=== PATIENT | male | born 1965 | race Caucasian/White ===

== ENCOUNTER 2017-08-12 03:25 | Observation (INO) ==
[2017-08-12] MEDS ORDERED: DiltiaZEM 25 MG/5 ML INJECTION IVP ONE (03:37)
[2017-08-12] MEDS ORDERED: SALINE FLUSH 10ml SYRINGE IVF PRN (03:37)
[2017-08-12] MEDS ORDERED: NS 1,000 ML IV ONE (03:37)
--- OUTSIDE RECORDS SUMMARY | 2017-08-12 03:47 | External Medical Summary | Summary of Care ---
:1965 Author Name Wesley Boo M.D. Address [address] [place] [address] Care Team Providers Name Role Phone LeannXu ayoub Unavailable Unavailable Unavailable Unavailable Unavailable Functional Status Functional Status Health Issues Name Dates Details Functional status health issues are not documented Status: Cognitive Status Health Issues Name Dates Details Cognitive status health issues are not documented Status: Problems Name Dates Details Elevated PSA (790.93, R97.20) Status: Active Benign prostatic hypertrophy with lower urinary tract symptoms (LUTS) (600.01, N40.1) Status: Active Medications Name Dates Details Zyrtec 10 MG TABS Refills: 0 Active Sotalol HCl - 80 MG Oral Tablet Refills: 0 Active Lisinopril 5 MG Oral Tablet Refills: 0 Active Vitamin C 500 MG Oral Tablet Refills: 0 Active HydroCHLOROthiazide 25 MG Oral Tablet Refills: 0 Active Aspirin EC 325 MG Oral Tablet Delayed Release Refills: 0 Active Allergies and Adverse Reactions Name Dates Details No Known Allergies (Allergy) Status: Active Past Medical History Name Dates Details History of atrial fibrillation (V12.59, Z86.79) Status: Resolved History of Calcium kidney stone (592.0, N20.0) Status: Resolved History of hypertension (V12.59, Z86.79) Status: Resolved History of Irregular heart beat (427.9, I49.9) Status: Resolved Procedures Procedure Dates Details History of Appendectomy History of Inguinal Hernia Repair History of Tonsillectomy With Adenoidectomy History of Biopsy Of The Prostate Needle Procedures not documented Immunization Name Dates Details Immunizations not documented Family History Unknown Family Member Name Dates Details Family history of Calcium kidney stones (592.0, N20.0) Comments: Family History Status: Active Family history of lymphoma (V16.7, Z80.2) Comments: Family History Status: Active Father Name Dates Details Family history of cerebrovascular accident (CVA) (V17.1, Z82.3) Status: Active Social History Name Dates Details - Status: Smoking Status Name Dates Details Never smoker Vital Signs Date Test Result Details No Known Vitals to report Results Date Description Value Details 08-Nov-2016 11:53 PSA ( PROSTATE SPECIFIC ANTIGEN) 3100 PROSTATE SPECIFIC ANTIGEN 2.960 ng/mL Range: 0.000-4.000 Plan of Care Name Dates Details Planned Observations Planned Goals not documented Planned Encounters Appointment; Provider: Wesley Boo M.D. On 06-Nov-2017 16:00 Appointment; Provider: Wesley Boo M.D. On 11:00 Instructions Name Dates Details Instructions not documented Encounters Appointment; Wesley Boo M.D. On 07-Nov-2016 Encounter Diagnosis: Problem not documented 15:45 Appointment; Wesley Boo M.D. On Encounter Diagnosis: Problem not documented 10:45 Appointment; Wesley Boo M.D. On 02-Nov-2015 Encounter Diagnosis: Problem not documented 15:45
--- OUTSIDE RECORDS SUMMARY | 2017-08-12 03:48 | External Medical Summary | Summary of Care ---
:1965 Author Name Wesley Boo M.D. Address [address] [place] [address] Care Team Providers Name Role Phone Xu Russ Primary Care Provider Unavailable Functional Status Functional Status Health Issues Name Dates Details Functional status health issues are not documented Status: Cognitive Status Health Issues Name Dates Details Cognitive status health issues are not documented Status: Problems Name Dates Details Elevated PSA (790.93, R97.2) Status: Active BPH (benign prostatic hypertrophy) (600.00, N40.0) Status: Active Medications Name Dates Details Zyrtec 10 MG TABS Refills: 0 ActiveSotalol HCl - 80 MG Oral Tablet Refills: 0 ActiveLisinopril 5 MG Oral Tablet Refills: 0 ActiveVitamin C 500 MG Oral Tablet Refills: 0 ActiveHydrochlorothiazide 25 MG Oral Tablet Refills: 0 ActiveAspirin EC 325 MG Oral Tablet Delayed Release Refills: 0 Active Allergies and Adverse Reactions Name Dates Details No Known Allergies Status: Active Past Medical History Name Dates [...] History of Biopsy Of The Prostate Needle PSA ( PROSTATE SPECIFIC ANTIGEN) 3100 Ordered:02-Nov-2015 Immunization Name Dates Details Immunizations not documented Family History Unknown Family Member Name Dates Details Family history of Calcium kidney stones (592.0, N20.0) Comments: Family History Status: Active Family history of lymphoma (V16.7, Z80.2) Comments: Family History Status: Active Father Name Dates Details Family history of cerebrovascular accident (CVA) (V17.1, Z82.3) Status: Active Social History Name Dates Details Smoking StatusNever smoker Vital Signs Date Test Result Details 02-Nov-2015 16:22 BP Systolic 132 mm[Hg] Status: BP Diastolic 90 mm[Hg] Status: Heart Rate 79 /min Status: Height 70 in Status: Weight 205 lb Status: Body Mass Index Calculated 29.41 kg/m2 Status: Body Surface Area Calculated 2.11 m2 Status: Results Date Description Value Details Results not documented Plan of Care Planned Observations Name Dates Details Planned Goals not documented Goal Planned Encounters Appointment; Provider: Wesley Boo On 07-Nov-2016 15:45 Instructions Instructions not documented Encounters Appointment; Wesley Boo On 02-Nov-2015 Encounter Diagnosis: Problem not documented 15:45
--- OUTSIDE RECORDS SUMMARY | 2017-08-12 03:48 | External Medical Summary | Summary of Care ---
:1965 Author Name Wesley Boo M.D. Address [address] [place] [address] [place] [address] Care Team Providers Name Role Phone Wesley Boo M.D. Unavailable Unavailable Xu Russ Unavailable Unavailable Unavailable Unavailable Unavailable Functional Status [...] to report Results Date Description Value Details Results not documented Plan of Care Name Dates Details Planned Observations Planned Goals not documented Planned Encounters Appointment; Provider: Wesley Boo M.D. On 06-Nov-2017 16:00 Appointment; Provider: Wesley Boo M.D. On 11:00 Instructions Name Dates Details Instructions not documented Encounters Appointment; Wesley Boo M.D. On Encounter Diagnosis: Problem not documented 10:45 Appointment; Wesley Boo M.D. On 02-Nov-2015 Encounter Diagnosis: Problem not documented 15:45
--- OUTSIDE RECORDS SUMMARY | 2017-08-12 03:48 | External Medical Summary | Summary of Care ---
:1965 Author Name Wesley Boo M.D. Address [address] [place] [address] Care Team Providers Name Role Phone Xu [...] m2 Status: Results Date Description Value Details 03-Nov-2015 10:47 PSA ( PROSTATE SPECIFIC ANTIGEN) 3100 PROSTATE SPECIFIC ANTIGEN 2.790 ng/mL (Better) Range: 0.000-4.000 Plan of Care Planned Observations Name Dates Details Planned Goals not documented Goal Planned Encounters Appointment; Provider: Wesley Boo On 07-Nov-2016 15:45 Instructions Instructions not documented Encounters Appointment; Wesley Boo On 02-Nov-2015 Encounter Diagnosis: Problem not documented 15:45
--- OUTSIDE RECORDS SUMMARY | 2017-08-12 03:48 | External Medical Summary | Summary of Care ---
:1965 Author Name Wesley Boo M.D. Address Unavailable Unavailable , Care Team Providers Name Role Phone Xu Russ Primary Care Provider Unavailable Unavailable Unavailable Unavailable Functional Status Functional Status Health Issues Name Dates Details Functional status health issues are not documented Status: Cognitive Status Health Issues Name Dates Details Cognitive status health issues are not documented Status: Problems Name Dates Details Benign prostatic hypertrophy with lower urinary tract symptoms (LUTS) (600.01, N40.1) Status: Active Elevated PSA (790.93, R97.2) Status: Active Medications Name Dates Details Zyrtec [...] Needle PSA ( PROSTATE SPECIFIC ANTIGEN) 3100 Ordered: Immunization Name Dates Details Immunizations not documented [...] Planned Encounters Appointment; Provider: Wesley Boo On 11:00 Appointment; Provider: Wesley Boo On 07-Nov-2016 15:45 Instructions Instructions not documented Encounters Appointment; Wesley Boo On Encounter Diagnosis: Problem not documented 10:45 Appointment; Wesley Boo On 02-Nov-2015 Encounter Diagnosis: Problem not documented 15:45
--- OUTSIDE RECORDS SUMMARY | 2017-08-12 03:48 | External Medical Summary | Summary of Care ---
:1965 Author Name Wesley Boo M.D. Address [address] [place] [address] Care Team Providers Name Role Phone Wesley Boo M.D. Unavailable Unavailable Xu Russ Unavailable Unavailable Unavailable Unavailable Unavailable Functional Status Functional Status Health Issues Name Dates Details Functional status health issues are not documented Status: Cognitive Status Health Issues Name Dates Details Cognitive status health issues are not documented Status: Problems Name Dates Details Benign prostatic hyperplasia with incomplete bladder emptying (600.01, N40.1) Status: Active Rising PSA level (790.93, R97.20) Status: Active Medications Name Dates Details Zyrtec 10 MG TABS Refills: 0 Active Sotalol HCl - 80 MG Oral Tablet Refills: 0 Active Lisinopril 5 MG Oral Tablet Refills: 0 Active Vitamin C 500 MG Oral Tablet Refills: 0 Active HydroCHLOROthiazide 25 MG Oral Tablet Refills: 0 Active Aspirin EC 325 MG Oral Tablet Delayed Release Refills: 0 Active Levothyroxine Sodium 25 MCG Oral Tablet TAKE 1 TABLET DAILY. Refills: 0 Start Active Tamsulosin HCl - 0.4 MG Oral Capsule TAKE ONE CAPSULE BY MOUTH EVERY NIGHT AT BEDTIME Quantity: 30 Refills: 3 Rajeev Carney, Wesley Start Active Allergies and Adverse Reactions Name Dates Details No Known Allergies (Allergy) Status: Active Past Medical History Name Dates Details History of atrial fibrillation (V12.59, Z86.79) Status: Resolved History of Calcium kidney stone (592.0, N20.0) Status: Resolved History of elevated prostate specific antigen (PSA) (V13.89, Z87.898) Status : Resolved History of hypertension (V12.59, Z86.79) Status: Resolved History of Irregular heart beat (427.9, I49.9) Status: Resolved Procedures Procedure Dates Details History of Appendectomy History of Inguinal Hernia Repair History of Tonsillectomy With Adenoidectomy History of Needle Biopsy Of Prostate PSA ( PROSTATE SPECIFIC ANTIGEN) 3100 Ordered: [...] smoker Vital Signs Date Test Result Details 11:04 BP Systolic 117 mm[Hg] Status: Comments: Location: ; Position: BP Diastolic 84 mm[Hg] Status: Comments: Location: ; Position: Heart Rate 82 /min Status: Comments: Location: ; Physical Findings 18 Status: Comments: Respiration Results Date Description Value Details Results not documented Plan of Care Name Dates Details Planned Observations Planned Goals not documented Planned Encounters Appointment; Provider: Wesley Boo M.D. On 11:00 Appointment; Provider: Wesley Boo M.D. On 06-Nov-2017 16:00 Interventions Provided Medication ChangesTamsulosin HCl - 0.4 MG Oral Capsule - StartLabs/Procedures/ ImagingPSA ( PROSTATE SPECIFIC ANTIGEN) 3100; To be Done: 01 May 2017 Instructions Name Dates Details Instructions not documented Encounters Appointment; Wesley Boo M.D. On 07-Nov-2016 Encounter Diagnosis: Problem not documented 15:45 Appointment; Wesley Boo M.D. On Encounter Diagnosis: Problem not documented 10:45 Appointment; Wesley Boo M.D. On 02-Nov-2015 Encounter Diagnosis: Problem not documented 15:45
--- OUTSIDE RECORDS SUMMARY | 2017-08-12 03:48 | External Medical Summary | Summary of Care ---
[...] to report Results Date Description Value Details 13:33 PSA ( PROSTATE SPECIFIC ANTIGEN) 3100 PROSTATE SPECIFIC ANTIGEN 3.490 ng/mL Range: 0.000-4.000 (Better) Comments: Variance from previous testing noted.----- Plan of Care Planned Observations Name Dates Details Planned Goals not documented Goal Planned Encounters Appointment; Provider: Wesley Boo On 11:00 Appointment; Provider: Wesley Boo On 07-Nov-2016 15:45 Instructions Instructions not documented Encounters Appointment; Wesley Boo On Encounter Diagnosis: Problem not documented 10:45 Appointment; Wesley Boo On 02-Nov-2015 Encounter Diagnosis: Problem not documented 15:45
--- OUTSIDE RECORDS SUMMARY | 2017-08-12 03:48 | External Medical Summary | Summary of Care ---
:1965 Author Name Wesley Boo M.D. Address [address] [place] [address] [place] [address] Care Team Providers Name Role Phone Wesley [...] PSA ( PROSTATE SPECIFIC ANTIGEN) 3100 Ordered: 07-Nov-2016 Immunization Name Dates Details Immunizations not documented [...] Appointment; Provider: Wesley Boo M.D. On 11:00 Interventions Provided Labs/Procedures/ImagingPSA ( PROSTATE SPECIFIC ANTIGEN) 3100; To be Done: 07 Nov 2016 Instructions Name Dates Details Instructions not documented Encounters Appointment; Wesley Boo M.D. On Encounter Diagnosis: Problem not documented 10:45 Appointment; Wesley oBo M.D. On 02-Nov-2015 Encounter Diagnosis: Problem not documented 15:45
--- OUTSIDE RECORDS SUMMARY | 2017-08-12 03:48 | External Medical Summary | Summary of Care ---
:1965 Author Name Wesley Boo M.D. Address [address] [place] [address] Care Team Providers Name Role Phone Xu [...] Hernia Repair History of Tonsillectomy With Adenoidectomy Procedures not documented Immunization Name Dates Details [...]
--- OUTSIDE RECORDS SUMMARY | 2017-08-12 03:48 | External Medical Summary | Summary of Care ---
:1965 Author Name Wesley Boo M.D. Address [address] [place] [address] [place] [address] Care Team Providers Name Role Phone Wesley [...] NIGHT AT BEDTIME Quantity: 30 Refills: 3 Wesley Boo M.D. Start Active Allergies and Adverse Reactions Name [...] Adenoidectomy History of Needle Biopsy Of Prostate Procedures not documented Immunization Name Dates Details [...] HCl - 0.4 MG Oral Capsule - Start Instructions Name Dates Details Instructions not documented Encounters Appointment; Wesley Boo M.D. On 07-Nov-2016 Encounter Diagnosis: Problem not documented 15:45 Appointment; Wesley Boo M.D. On Encounter Diagnosis: Problem not documented 10:45 Appointment; Wesley Boo M.D. On 02-Nov-2015 Encounter Diagnosis: Problem not documented 15:45
--- NOTE | 2017-08-12 04:11 | Emergency Department Report ---
Cardiac General HPI - General Chief Complaint: Arrhythmia/Palpitations Stated Complaint: afib Time Seen by Provider: 08/12/17 03:33 Source: patient Mode of arrival: ambulatory Limitations: no limitations - History of Present Illness HPI narrative: 51yo man presents to the ER for evaluation of a fast heart rate. Pt has a h/o A- fib; has had A-fib with RVR twice in the last 5 years. Both times, he was cardioverted (once with diltiazem, once electrically). He denies anything out of the ordinary tonight; no EtOH or drug ingestion. Certified [employer]der is Dr. Eaton. Occurred At: home Onset (ago): minute(s) Duration: constant Severity: moderate Context: occurred during rest Activites at Onset: sleep Prior Chest Pain/Cardiac Workup: echocardiography Nitro Today: no nitro taken today Associated Symtoms: denies other symptoms History of Similar Symptoms: Yes - Related Data Home Medications Medication Instructions Recorded Confirmed Ascorbic Acid (Vitamin C) 1,000 mg PO DAILY #0 04/02/13 08/12/17 Aspirin 325 mg PO DAILY #0 04/02/13 08/12/17 Cetirizine HCl [Zyrtec] 10 mg PO DAILY #0 04/02/13 08/12/17 Sotalol HCl [Sotalol] 120 mg PO BID #0 04/02/13 08/12/17 Lisinopril 5 mg PO HS #0 tab 05/06/15 08/12/17 hydroCHLOROthiazide 25 mg PO DAILY #0 05/06/15 08/12/17 [Hydrochlorothiazide] Previous Rx's Medication Instructions Recorded levothyroxine 25 mcg tablet 25 mcg PO DAILY #30 tab 07/17/17 Allergies Allergy/AdvReac Type Severity Reaction Status Date / Time No Known Allergies Allergy Verified 08/12/17 04:06 Review of Systems All systems: reviewed and negative except as stated Cardiovascular: Reports: as per HPI, palpitations PFSH Patient Stated Medical History Cardiac Arrhythmia Yes: A-Fib with RVR Medical History Updates: A-fib with RVR. HTN. Hypothyroid. Allergic rhinitis - Social History Smoking status: Never smoker Physical Exam - Limitations Limitations: no limitations - General General appearance: alert, in no apparent distress, obese - Normal Exams: Head:: Normocephalic without trauma Eyes:: Pupils are PERRLA w/ EOMI, No scleral icterus, irritation, or foreign bodies noted ENMT:: No facial trauma, nasal exudates, pharyngeal erythema, or exudates are noted Neck:: Full range of motion, without adenopathy Lymphatic:: No lymphadenopathy Musculoskeletal:: No tenderness, or deformity noted Integumentary:: No rashes, hives, or bruising noted Neurological:: Patient is alert, and oriented Psychiatric:: Patient exhibits, appropriate attention - Chest Chest inspection: Present: normal inspection, symmetric chest wall rise. Absent : tenderness, rash - Respiratory Respiratory exam: Present: normal lung sounds bilaterally. Absent: respiratory distress, wheezes, prolonged expiratory phase - Cardiovascular Cardiovascular exam: Present: tachycardia, irregular rhythm, normal heart sounds , +S1, +S2. Absent: regular rate, normal rhythm, systolic murmur, diastolic murmur, +S3, +S4 - Abdominal Exam Abdominal exam: Present: soft, normal bowel sounds. Absent: distention, tenderness, guarding, rebound, rigidity, psoas sign, obturator sign, heel tap sign, Sy's sign, Rovsing's sign, tenderness at McBurney's Point, hernia Course - Consultations Consultation #1: Dr. Eaton: Will place pt in CCU. Ensure pt is anticoagulated and place on dilt drip to control rate. Time: 04:43 Vital Signs Temperature 98.1 F 08/12/17 03:27 Pulse Rate 130 H 08/12/17 03:27 Respiratory Rate 16 08/12/17 03:27 Blood Pressure 123/89 08/12/17 03:27 Pulse Oximetry 98 08/12/17 03:27 Temperature 98.1 F 08/12/17 03:27 Pulse Rate 68 08/12/17 04:30 Respiratory Rate 24 08/12/17 04:30 Blood Pressure 112/74 08/12/17 04:30 Pulse Oximetry 94 08/12/17 04:30 Cardiac General - Differential Diagnosis Differential diagnosis: Likely: palpitations, anxiety, artial fibrillation, artial flutter, supraventricular tachycardia - Medical Records Attestation: I reviewed the patient's medical records. - Lab Data Attestation: I reviewed the patient's lab results. Result diagrams: 08/12/17 03:56 08/12/17 03:56 Lab Results 08/12/17 08/12/17 Range/Units 03:56 03:56 WBC 8.2 (4.5-11.0) T/MM3 RBC 4.84 (4.50-5.90) M/MM3 Hgb 13.6 (13.5-17.5) GM/DL Hct 40.2 L (41-53) % MCV 83.1 (80-100) UM3 MCH 28.1 (26-34) UUG MCHC 33.8 (31-37) GM/DL RDW Std Deviation 40.4 (36.9-50.2) FL Plt Count 289 (130-400) T/MM3 MPV 9.9 (9.4-12.4) UM3 Immature Gran % (Auto) 0.6 H (0.0-0.5) % Neut % (Auto) 55.9 (33-66) % Lymph % (Auto) 29.4 (23-45) % [place] % (Auto) 11.4 H (0-9.0) % Eos % (Auto) 2.1 (0-4) % Baso % (Auto) 0.6 (0-2) % Neut # (Auto) 4.6 (1.8-7.7) T/MM3 Lymph # (Auto) 2.4 (1-4.8) T/MM3 [place] # (Auto) 0.9 H (0-0.8) T/MM3 Eos # (Auto) 0.2 (0-0.5) T/MM3 Baso # (Auto) 0.1 (0-0.2) T/MM3 Abs Immat Gran (auto) 0.05 H (0.00-0.03) T/MM3 Turbidity < 20 (0-20) Sodium 143 (134-144) MEQ/L Potassium 3.4 L (3.6-5) MEQ/L Chloride 106 (98-107) MEQ/L Carbon Dioxide 27 (22-30) MEQ/L Anion Gap 10 (5-15) MEQ/L BUN 13.0 (9-20) MG/DL Creatinine 0.8 (0.8-1.5) MG/DL GFR Calculation 102 BUN/Creatinine Ratio 16 (6-26) RATIO Glucose 110 (75-110) MG/DL Calculated Osmolality 276 (261-280) MOSM/KG Calcium 9.2 (8.4-10.2) MG/DL Icterus Index < 2 (0-7) Specimen Hemolysis < 15 (0-25) - Radiology Data Attestation: I reviewed the patient's radiology results. - EKG Data EKG #1 EKG attestation: Yes: I reviewed and interpreted this EKG. EKG shows normal: axis, intervals, QRS complexes Rhythm: A.Fib Interpretation: nonspecific ST-T wave changes Disposition Clinical Impression: Atrial fibrillation with RVR Disposition: 02 To [facility] Print Language: Egyptian Condition: Improved Prescriptions: No Action Sotalol HCl [Sotalol] 120 mg PO BID #0 Aspirin 325 mg PO DAILY #0 Ascorbic Acid (Vitamin C) 1,000 mg PO DAILY #0 Cetirizine HCl [Zyrtec] 10 mg PO DAILY #0 hydroCHLOROthiazide [Hydrochlorothiazide] 25 mg PO DAILY #0 Lisinopril 5 mg PO HS #0 tab levothyroxine 25 mcg tablet 25 mcg PO DAILY #30 tab Referrals: Xu Russ MD [Family Provider] - Time of Disposition: 04:49 - Seen By: physician
[2017-08-12] MEDS ORDERED: ENOXAPARIN 100 MG/ML INJECTION SQ ONE (04:48)
[2017-08-12] MEDS ORDERED: DiltiaZEM Drip 125 MG in NS 100 ML IV SCH (05:00)
[2017-08-12 05:35] VITALS: BMI 32.4
[2017-08-12] MEDS ORDERED: INFLUENZA VAC QIV 2017-18 (Fluarix*)(>=3yo) 0.5ml IM ONE (05:39)
--- NOTE | 2017-08-12 07:08 | XRay Report ---
EXAM: XR chest 1V LOCATION OF DICTATION: [facility] HISTORY: A-fib with RVR COMPARISON: May 21, 2014. FINDINGS: The heart is upper limits normal size. There is mild prominence the central bronchovascular structures. Mild hazy interstitial opacities demonstrated bilaterally. There are no visible pleural effusions. There is no pneumothorax. The osseous structures are within normal limits for the patient's age. IMPRESSION: Upper limits normal sized heart with suggestion of mild pulmonary vascular congestion and interstitial edema. .
[2017-08-12] MEDS ORDERED: LEVOTHYROXINE 25 MCG TABLET PO SCH (09:00)
[2017-08-12] MEDS ORDERED: CETIRIZINE 10 MG TABLET PO SCH (09:00)
[2017-08-12] MEDS ORDERED: ENOXAPARIN 100 MG/ML INJECTION SQ SCH (09:00)
[2017-08-12] MEDS ORDERED: ASPIRIN 325 MG TABLET PO SCH (09:00)
[2017-08-12] MEDS ORDERED: ASCORBIC ACID 500 MG TABLET PO SCH (09:00)
--- NOTE | 2017-08-12 10:16 | Cardiology History & Physical ---
History of Present Illness Chief complaint: arrhythmia HPI: Lincoln is a 51 year old man who is known to Dr. Eaton who has a history of PAF, HTN and BROOK who presented to the ER for evaluation of a fast heart rate. He was found to be in AFib and given IV Cardizem in the ED without conversion but slowed rate to low 100s. He denies anything out of the ordinary tonight; no EtOH or drug ingestion. He was admitted to CCU for Cardizem drip and DCCV if not converted. He has been on Sotalol 120mg BID and Aspirin 325mg. Before being seen this morning Lincoln can converted back to SR. Discussed current Sotalol dose and patient agrees to continue same dose Sotalol. He denies chest pain or pressure, dyspnea or dizziness. Review of Systems - Constitutional Constitutional: Absent: chills, fatigue, fever(s), weakness - EENMT Eyes: Absent: change in vision Balance: Absent: vertigo Mouth/Throat: Absent: sore throat - Cardiovascular Cardiovascular: Present: palpitations. Absent: chest pain, syncope, dyspnea on exertion, orthopnea Rhythm: Present: abnormal rhythm Vascular: Absent: pedal edema - Respiratory Respiratory: Absent: cough, dyspnea - Gastrointestinal Gastrointestinal: Absent: abdominal pain, constipation, diarrhea, nausea, vomiting - Genitourinary Genitourinary: Absent: dysuria - Integumentary/Breasts Integumentary: Absent: rash - Neurological Neurological: Absent: dizziness - Endocrine Endocrine: Present: palpitations PFSH Patient Stated Medical History Cardiac Arrhythmia Yes: A-Fib with RVR Hypertension Yes Sleep Apnea Yes Medical History Updates: A-fib with RVR. HTN. Hypothyroid. Allergic rhinitis Surgical History: Tonsillectomy. Appendectomy. Hernia repair Family History: Father- Bone marrow cancer Maternal grandfather- CVA Maternal grandmother- Sudden - Social History Smoking status: Never smoker Substance use type: does not use Alcohol intake frequency: holidays/special occasions only Household members: none Current occupational status: employed Current residence: Apartment/Private Home Medications Home Medications Medication Instructions Recorded Confirmed Type Ascorbic Acid (Vitamin C) 1,000 mg PO DAILY #0 04/02/13 08/12/17 History Aspirin 325 mg PO DAILY #0 04/02/13 08/12/17 History Cetirizine HCl [Zyrtec] 10 mg PO DAILY #0 04/02/13 08/12/17 History Sotalol HCl [Sotalol] 120 mg PO BID #0 04/02/13 08/12/17 History Lisinopril 5 mg PO HS #0 tab 05/06/15 08/12/17 History hydroCHLOROthiazide 25 mg PO DAILY #0 05/06/15 08/12/17 History [Hydrochlorothiazide] Allergies Allergy/AdvReac Type Severity Reaction Status Date / Time No Known Allergies Allergy Verified 08/12/17 04:06 Exam Vital signs: Temperature 97.9 F 08/12/17 08:15 Pulse Rate 57 L 08/12/17 08:32 Respiratory Rate 19 08/12/17 08:15 Blood Pressure 116/80 08/12/17 08:15 Pulse Oximetry 96 08/12/17 08:15 - Constitutional no acute distress, well nourished, cooperative - Routine HEENT Exam Head: Present: normocephalic ENT: Present: mucous membranes moist - Routine Neck Exam Absent: JVD, carotid bruit - Routine Chest/Breast/Axilla Exam Chest wall: Absent: tenderness - Routine Respiratory Exam Present: CTA bilaterally. Absent: rales, wheezes - Routine Cardiovascular Exam Present: RRR. Absent: no murmur, JVD - Routine Abdominal Exam Present: soft, normoactive bowel sounds - Routine Extremities Exam Present: no edema - Routine Skin Exam Present: intact, dry, warm - Routine Neurological Exam Present: alert, oriented X3 - Routine Psychiatric Exam Present: normal affect, normal thought process - Additional findings Additional findings: Abnormal Lab Results 08/12/17 08/12/17 08/12/17 03:56 03:56 03:56 WBC 8.2 RBC 4.84 Hgb 13.6 Hct 40.2 L MCV 83.1 MCH 28.1 MCHC 33.8 RDW Std Deviation 40.4 Plt Count 289 MPV 9.9 Immature Gran % (Auto) 0.6 H Neut % (Auto) 55.9 Lymph % (Auto) 29.4 [place] % (Auto) 11.4 H Eos % (Auto) 2.1 Baso % (Auto) 0.6 Neut # (Auto) 4.6 Lymph # (Auto) 2.4 Gordon # (Auto) 0.9 H Eos # (Auto) 0.2 Baso # (Auto) 0.1 Abs Immat Gran (auto) 0.05 H Turbidity < 20 Sodium 143 Potassium 3.4 L Chloride 106 Carbon Dioxide 27 Anion Gap 10 BUN 13.0 Creatinine 0.8 GFR Calculation 102 BUN/Creatinine Ratio 16 Glucose 110 Calculated Osmolality 276 Calcium 9.2 Magnesium 1.7 Icterus Index < 2 TSH 5.15 H Specimen Hemolysis < 15 Ascorbic Acid (Vitamin C) 1,000 mg PO DAILY [facility] Last Admin: 08/12/17 11:14 Dose: 1,000 mg Aspirin (Asa) 325 mg PO DAILY [facility] Last Admin: 08/12/17 11:18 Dose: 325 mg Cetirizine HCl (Zyrtec) 10 mg PO ACB [facility] Last Admin: 08/12/17 11:14 Dose: 10 mg Hydrochlorothiazide (Hydrodiuril) 25 mg PO WB [facility] Levothyroxine Sodium (Synthroid) 25 mcg PO ACB [facility] Last Admin: 08/12/17 11:15 Dose: 25 mcg Lisinopril (Prinivil) 5 mg PO HS [facility] Sodium Chloride (Iv Flush) 10 - 80 ml IVF PRN PRN PRN Reason: Flushing Last Admin: 08/12/17 04:18 Dose: 10 ml Sotalol HCl (Betapace) 120 mg PO BID/E [facility] Last Admin: 08/12/17 11:23 Dose: 120 mg Results 08/12/17 03:56 08/12/17 03:56 Intake and Output 08/11/17 08/12/17 08/12/17 22:59 06:59 14:59 Intake Total 1003.834 / 1003.834 Output Total 250 / 250 Balance 1003.834 / 1003.834 -250 / -250 Intake: IV 1003.834 / 1003.834 DiltiaZEM Drip 125 mg In 3.834 / 3.834 Ns 100 ml @ 0 mls/hr IV PRN [facility] Rx#:[id number] Ns 1,000 ml @ 1000 mls/hr 1000 / 1000 IV .Q1H ONE Rx#: [id number] Output: Urine 250 / 250 Other: Urine Appearance Clear Urine Color Pale Yellow Weight 213 lb 2.992 oz - Imaging and Cardiology EKG results: image reviewed Imaging & Cardiology Narrative: Date of Exam: 08/12/17 Ordering Provider: May, Daniel M DO Type of Exam(s): XR chest 1V Reason for Exam(s): A-fib with RVR EXAM: XR chest 1V LOCATION OF DICTATION: [place] HISTORY: A-fib with RVR COMPARISON: May 21, 2014. FINDINGS: The heart is upper limits normal size. There is mild prominence the central bronchovascular structures. Mild hazy interstitial opacities demonstrated bilaterally. There are no visible pleural effusions. There is no pneumothorax. The osseous structures are within normal limits for the patient's age. IMPRESSION: Upper limits normal sized heart with suggestion of mild pulmonary vascular congestion and interstitial edema. 08/12/17 14:05 EKG interpretations - EKG EKG results cardiology: sinus rhythm - Blocks, axis, hypertrophy, ST abn Repolarization changes or abnormalities: nonspecific abnormality, ST segment, and/or T wave Hospital Course This is a general summary of the patient's hospital course. For more details refer to the complete medical record. Assessment and Plan - Assessment and Plan (1) Atrial fibrillation with RVR Current visit: Yes Status: Acute History of PAF, last episode in December. - Started on Cardizem in the ED, transferred to CCU, drip started - Converted before planned DCCV - Will continue home Sotalol and discharge later today (2) Essential (primary) hypertension Current visit: Yes Status: Acute BP elevated. Instructed patient to take and record and bring to follow up for adjustment of HTN medications. (3) BROOK (obstructive sleep apnea) Current visit: Yes Status: Acute
[2017-08-12] MEDS ORDERED: SOTALOL 120 MG TABLET PO SCH (11:30)
[2017-08-12 12:21] VITALS: BP 126/88; RESP 24; TEMP 97.6; O2SAT 98
[2017-08-12 12:30] VITALS: PULSE 65
--- NOTE | 2017-08-12 15:09 | Discharge Summary ---
<Serenity Aleman - Last Filed: 08/12/17 15:06> Discharge Information Date of admission: 08/12/17 05:15 Anticipated date of discharge: 08/12/17 Attending Physician: Jairo Eaton MD Primary care physician: Xu Russ MD - Discharge Diagnosis (1) Atrial fibrillation with RVR Status: Acute (2) Essential (primary) hypertension Status: Acute (3) BROOK (obstructive sleep apnea) Status: Acute - Procedures Procedures: none, converted before planned DCCV - Laboratory Labs: Laboratory Tests 08/12/17 08/12/17 08/12/17 03:56 03:56 03:56 WBC 8.2 RBC 4.84 Hgb 13.6 Hct 40.2 L MCV 83.1 MCH 28.1 MCHC 33.8 RDW Std Deviation 40.4 Plt Count 289 MPV 9.9 Immature Gran % (Auto) 0.6 H Neut % (Auto) 55.9 Lymph % (Auto) 29.4 [place] % (Auto) 11.4 H Eos % (Auto) 2.1 Baso % (Auto) 0.6 Neut # (Auto) 4.6 Lymph # (Auto) 2.4 [place] # (Auto) 0.9 H Eos # (Auto) 0.2 Baso # (Auto) 0.1 Abs Immat Gran (auto) 0.05 H Turbidity < 20 Sodium 143 Potassium 3.4 L Chloride 106 Carbon Dioxide 27 Anion Gap 10 BUN 13.0 Creatinine 0.8 GFR Calculation 102 BUN/Creatinine Ratio 16 Glucose 110 Calculated Osmolality 276 Calcium 9.2 Magnesium 1.7 Icterus Index < 2 TSH 5.15 H Specimen Hemolysis < 15 Ascorbic Acid (Vitamin C) 1,000 mg PO DAILY [facility] Last Admin: 08/12/17 11:14 Dose: 1,000 mg Aspirin (Asa) 325 mg PO DAILY [facility] Last Admin: 08/12/17 11:18 Dose: 325 mg Cetirizine HCl (Zyrtec) 10 mg PO ACB [facility] Last Admin: 08/12/17 11:14 Dose: 10 mg Hydrochlorothiazide (Hydrodiuril) 25 mg PO WB [facility] Levothyroxine Sodium (Synthroid) 25 mcg PO ACB [facility] Last Admin: 08/12/17 11:15 Dose: 25 mcg Lisinopril (Prinivil) 5 mg PO HS [facility] Sodium Chloride (Iv Flush) 10 - 80 ml IVF PRN PRN PRN Reason: Flushing Last Admin: 08/12/17 04:18 Dose: 10 ml Sotalol HCl (Betapace) 120 mg PO BID/E [facility] Last Admin: 08/12/17 11:23 Dose: 120 mg - Radiology Radiology: Date of Exam: 08/12/17 Ordering Provider: Daniel Tena DO Type of Exam(s): XR chest 1V Reason for Exam(s): A-fib with RVR EXAM: XR chest 1V LOCATION OF DICTATION: [place] HISTORY: A-fib with RVR COMPARISON: May 21, 2014. FINDINGS: The heart is upper limits normal size. There is mild prominence the central bronchovascular structures. Mild hazy interstitial opacities demonstrated bilaterally. There are no visible pleural effusions. There is no pneumothorax. The osseous structures are within normal limits for the patient's age. IMPRESSION: Upper limits normal sized heart with suggestion of mild pulmonary vascular congestion and interstitial edema. History of Present Illness HPI: Lincoln is a 51 year old man who is known to Dr. Eaton who has a history of PAF, HTN and BROOK who presented to the ER for evaluation of a fast heart rate. He was found to be in AFib and given IV Cardizem in the ED without conversion but slowed rate to low 100s. He denies anything out of the ordinary tonight; no EtOH or drug ingestion. He was admitted to CCU for Cardizem drip and DCCV if not converted. He has been on Sotalol 120mg BID and Aspirin 325mg. Before being seen this morning Lincoln can converted back to SR. Discussed current Sotalol dose and patient agrees to continue same dose Sotalol. He denies chest pain or pressure, dyspnea or dizziness. Hospital Course This is a general summary of the patient's hospital course. For more details refer to the complete medical record. Hospital course: Patient converted on Cardizem drip and restarted on home sotalol. Monitored in CCU for 4 hours and then discharged to home in the care of himself. Time spent with patient: 25 - 35 minutes DVT Prophylaxis: Pradaxa Exam Vital signs: Temperature 97.6 F 08/12/17 12:00 Pulse Rate 65 08/12/17 12:00 Respiratory Rate 24 08/12/17 12:00 Blood Pressure 126/88 08/12/17 12:00 Pulse Oximetry 98 08/12/17 12:00 - Constitutional no acute distress, cooperative - Routine HEENT Exam Head: Present: normocephalic ENT: Present: mucous membranes moist - Routine Neck Exam Absent: JVD, carotid bruit - Routine Chest/Breast/Axilla Exam Chest wall: Absent: tenderness - Routine Respiratory Exam Present: CTA bilaterally. Absent: rales, wheezes - Routine Cardiovascular Exam Present: RRR, no murmur. Absent: JVD - Routine Abdominal Exam Present: soft, normoactive bowel sounds - Routine Extremities Exam Present: no edema - Routine Skin Exam Present: intact, dry, warm - Routine Neurological Exam Present: alert, oriented X3 - Routine Psychiatric Exam Present: normal affect, normal thought process Results 08/12/17 03:56 08/12/17 03:56 Intake and Output 08/12/17 08/12/17 08/12/17 06:59 14:59 22:59 Intake Total 1003.834 / 1003.834 208.6 / 208.6 Output Total 250 / 250 Balance 1003.834 / 1003.834 -41.4 / -41.4 Intake: IV 1003.834 / 1003.834 18.6 / 18.6 DiltiaZEM Drip 125 mg In 3.834 / 3.834 18.6 / 18.6 Ns 100 ml @ 0 mls/hr IV PRN [facility] Rx#:[id number] Ns 1,000 ml @ 1000 mls/hr 1000 / 1000 IV .Q1H ONE Rx#: [id number] Oral 190 / 190 Output: Urine 250 / 250 Other: Urine Appearance Clear Urine Color Pale Yellow Stool Color Brown Stool Consistency Soft Formed Size of Bowel Movement Large # Voids 1 # Bowel Movements 1 Weight 213 lb 2.992 oz - EKG Interpretation EKG: sinus rhythm Discharge Plan - Med Rec/Dispo Referrals/Follow Up: Jairo Eaton MD [Physician] - 08/27/17 9:30 am Jose F Instructions: A-fib (Atrial Fibrillation) (DC) Prescriptions: Continue Sotalol HCl [Sotalol] 120 mg PO BID #0 Aspirin 325 mg PO DAILY #0 Ascorbic Acid (Vitamin C) 1,000 mg PO DAILY #0 Cetirizine HCl [Zyrtec] 10 mg PO DAILY #0 hydroCHLOROthiazide [Hydrochlorothiazide] 25 mg PO DAILY #0 Lisinopril 5 mg PO HS #0 tab levothyroxine 25 mcg tablet 25 mcg PO DAILY #30 tab - Disposition 01 Discharged Home, Self-Care <AngelitoJairo - Last Filed: 08/16/17 08:10> Discharge Information Date of admission: 08/12/17 05:15 Attending Physician: Jairo Eaton MD Primary care physician: Xu Russ MD - Discharge Diagnosis (1) Atrial fibrillation with RVR Status: Acute (2) Essential (primary) hypertension Status: Acute (3) BROOK (obstructive sleep apnea) Status: Acute Hospital Course This is a general summary of the patient's hospital course. For more details refer to the complete medical record. Exam Vital signs: Temperature 97.6 F 08/12/17 12:00 Pulse Rate 65 08/12/17 12:00 Respiratory Rate 24 08/12/17 12:00 Blood Pressure 126/88 08/12/17 12:00 Pulse Oximetry 98 08/12/17 12:00 Results 08/12/17 03:56 08/12/17 03:56 Discharge Plan - Med Rec/Dispo - Attestation Attestation Narrative: 08/16/17 08:10 Recommendation After examining the patient I agree with the above assessment. I am involved in the formulation of the patient's plan of care.
[2017-08-12] MEDS ORDERED: INFLUENZA VAC. INJ. ADMIN CHARGE INJ ONE (15:55)
[2017-08-12] MEDS ORDERED: LISINOPRIL 5 MG TABLET PO SCH (21:00)
== END 2017-08-12 15:56 | disposition home or self-care (01) ==
LOC: ED 03:25 → CCU 03:25
PROVIDERS: ADMIT Internal Medicine Cardiovascular Disease; ATTEND Internal Medicine Cardiovascular Disease